=== PATIENT | male | born 1985 | race American Indian/Alaskan Native ===

== ENCOUNTER 2017-01-30 16:38 | Outpatient (CLI) | payer MEDICAID ==
[2017-01-30 17:18] LABS: Basophils % (Auto) 0.7 % (0.0-1.8); Eosinophils % (Auto) 4.3 % (0.0-4.3); Hematocrit 40.4 % (35.5-45.6); Hemoglobin 13.1 gm/dl (11.8-15.2); Mean Corpuscular HGB Conc 33 % (32-34); Mean Corpuscular Hemoglobin 27 pg (28-32); Mean Corpuscular Volume 82 fl (84-94); Platelet Count 213 K/mm3 (140-440); Red Blood Count 4.91 M/mm3 (3.65-5.03); Red Cell Distribution Width 13.4 % (13.2-15.2); White Blood Count 7.8 K/mm3 (4.5-11.0)
== END 2017-01-30 16:39 | disposition home or self-care (01) ==
LOC: LAB 16:38
PROVIDERS: ATTEND Psychiatry & Neurology Psychiatry
DX: F31.2 Bipolar disorder, current episode manic severe with psychotic features (principal); F70 Mild intellectual disabilities
CPT/HCPCS: 36415; 85025